=== PATIENT | female | born 1960 | race Asian ===

== ENCOUNTER 2019-04-16 18:56 | Emergency (ER) | payer OTHER ==
[2019-04-16 19:15] VITALS: BP 151/82; PULSE 58; TEMP 97.8; BMI 21.7
[2019-04-16 20:02] LABS: BASO % 0.3 % (0-2.0); EOS % 1.9 % (0-4.5); HEMATOCRIT 36.8 % (32.4-45.2); LYMPH % 34.8 % (8-40); MCH 28.4 pg (25.7-33.7); MCHC 32.7 g/dl (32.0-36.0); MEAN CELL VOLUME 86.9 fl (80-96); MEAN PLT VOLUME 8.5 fl (7.5-11.1); MONO % 5.9 % (3.8-10.2); NEUT % 57.1 % (42.8-82.8); PLATELET COUNT 290 K/MM3 (134-434); RBC 4.23 M/mm3 (3.60-5.2); RDW 15.3 % (11.6-15.6)
[2019-04-16 20:20] LABS: ALBUMIN 4.1 g/dl (3.4-5.0); BILIRUBIN,TOTAL 0.5 mg/dl (0.2-1); CALCIUM 9.3 mg/dl (8.5-10); CREATININE 0.8 mg/dl (0.55-1.3); POTASSIUM 3.8 mmol/L (3.5-5.1); TOT PROT 8.3 g/dl (6.4-8.2)
--- NOTE | 2019-04-16 20:26 | PDOC ---
Documentation entered by Jenise Lucio SCRIBE, acting as scribe for Anastasiia Stout MD. Anastasiia Stout MD: This documentation has been prepared by the [email or web address], Jenise Lucio SCRIBE, under my direction and personally reviewed by me in its entirety. I confirm that the documentation accurately reflects all work , treatment, procedures, and medical decision making performed by me. History of Present Illness - General Chief Complaint: Back Pain Stated Complaint: BACK PAIN History Source: Patient Exam Limitations: No Limitations - History of Present Illness Initial Comments: 04/16/19 20:03 The patient is a 58-year-old female who presents to the emergency department with a sudden onset of lower back pain 3 days ago. The family at bedside reports the pain worsened last night and indicates the pain is aggravated with movement. The patient was seen at urgent care, where she was given naproxen for the pain. Denies fall or injury. Denies hx of back pain. PAST MEDICAL HISTORY: HTN PAST SURGICAL HISTORY: no significant history FAMILY HISTORY: no pertinent history SOCIAL HISTORY: Pt lives with family. MEDICATIONS: reviewed ALLERGIES: As per nursing notes General: No fevers or chills, no weakness, no weight loss HEENT: No change in vision. No sore throat,. No ear pain CardioVascular: No chest pain or shortness of breath Respiratory:No cough, or wheezing. Gastrointestinal: no nausea, vomiting, diarrhea or constipation, No rectal bleeding Genitourinary: No dysuria, hematuria, or frequency Musculoskeletal: +back pain. No other joint or muscle pain or swelling Neurologic: No headache, vertigo, dizziness or loss of consciousness Psychiatric: nor depression Skin: No rashes or easy bruising Endocrine: no increased thirst or abnormal weight change Allergic: no skin or latex allergy All other systems reviewed and normal General: Well-nourished well-developed individual, no acute distress HEENT: Throat: Normal, tonsils normal, no erythema or exudate Neck: Supple, no meningeal signs, no lymphadenopathy Eyes::Pupils equal reactive and round, extraocular motion intact Chest: Nontender to palpation Cardiac: S1-S2 normal, regular rate and rhythm, no murmurs rubs or gallops Respiratory: Lungs clear to auscultation bilateral Abdomen: soft, nontender, no pulsatile mass palpated. Extremities: Warm, dry, no cyanosis, clubbing, or edema Back: +tenderness on palpation of the bilateral paraspinal area of lower lumbar spine and upper sacral spine, no tenderness of the spine lumbar and sacral spine. Skin: No rashes Neuro: Alert and oriented x3, nonfocal exam, grossly intact. Psych: Normal mood and affect 04/16/19 20:24 Assessment and plan: This is a 58-year-old female who comes in with her family for evaluation of low back pain. Patient said it began acutely when she went to get up from a couch. Patient denies history of any similar pain in the past. Patient does have history of risk factors for aortic dissection including hypertension. CBC, comp, CTA scan of abdomen and pelvis to rule out aortic dissection. 04/16/19 22:56 CAT scan was negative for any aortic pathology specifically no evidence of dissection. Patient's pain is most likely a radiculopathy Patient given Flexeril and Toradol for the pain/ Prescription for Flexeril sent to the pharmacy and patient was told to take naproxen 2 tablets twice a day and follow-up with her primary care doctor Past History - Past Medical History Allergies/Adverse Reactions: Allergies Allergy/AdvReac Type Severity Reaction Status Date / Time No Known Allergies Allergy Unverified 04/16/19 18:57 Home Medications: Ambulatory Orders Atenolol 04/16/19 Cyclobenzaprine HCl [Flexeril 10 mg] 10 mg PO BID #14 tablet 04/16/19 Naproxen 250 mg PO PRN PRN 04/16/19 - Suicide/Smoking/Psychosocial Hx Smoking History: Never smoked *Physical Exam - Vital Signs Last Vital Signs Temp Pulse Resp BP Pulse Ox 97.8 F 58 L 16 151/82 100 04/16/19 18:58 04/16/19 18:58 04/16/19 18:58 04/16/19 18:58 04/16/19 18:58 ED Treatment Course - LABORATORY CBC & Chemistry Diagram: 04/16/19 19:40 04/16/19 19:40 - ADDITIONAL ORDERS Additional order review: Laboratory Results 04/16/19 19:40 Sodium 139 Potassium 3.8 Chloride 105 Carbon Dioxide 26 Anion Gap 8 BUN 19.0 H Creatinine 0.8 Est GFR (CKD-EPI)AfAm 92.87 Est GFR (CKD-EPI)NonAf 80.13 Random Glucose 130 H Calcium 9.3 Total Bilirubin 0.5 AST 25 ALT 18 Alkaline Phosphatase 96 Total Protein 8.3 H Albumin 4.1 04/16/19 19:40 RBC 4.23 MCV 86.9 MCHC 32.7 RDW 15.3 MPV 8.5 Neutrophils % 57.1 Lymphocytes % 34.8 Monocytes % 5.9 Eosinophils % 1.9 Basophils % 0.3 - RADIOLOGY Radiology Studies Ordered: Category Date Time Status ABDOMEN CTA AOR & BLE RUNOFF [CT] Stat CT Scan 04/16/19 19:34 Ordered *DC/Admit/Observation/Transfer Diagnosis at time of Disposition: Low back pain Qualifiers: Chronicity: acute Back pain laterality: bilateral Sciatica presence: without sciatica Qualified Code(s): M54.5 - Low back pain - Discharge Dispostion Disposition: HOME Condition at time of disposition: Stable Decision to Admit order: No - Prescriptions Prescriptions: Cyclobenzaprine HCl [Flexeril 10 mg] 10 mg PO BID #14 tablet - Referrals Referrals: Bianca Bradley MD [Primary Care Provider] - - Patient Instructions Additional Instructions: For the pain continue to take the naproxen instead of 1 tablet twice a day take 2 tablets twice a day with food don't take on an empty stomach. In addition to the naproxen take Flexeril which is a muscle relaxant one tablet twice a day it will make you drowsy so do not try to work or drive or do anything that requires her concentration. Return to the emergency department immediately with ANY new, persistent or worsening symptoms. Continue any medications as previously prescribed by your physician. You should follow up with your primary doctor as soon as possible regarding today's emergency department visit. . Please make sure your doctor reviews the results of your emergency evaluation. Thank you for coming to the Emergency Department today for your care. It was a pleasure to see you today. Please note that your evaluation is INCOMPLETE until you follow-up with your doctor. - Post Discharge Activity
[2019-04-16] MEDS ORDERED: SODIUM CHLORIDE 1,000 ML IV ONE (20:34)
[2019-04-16] MEDS ORDERED: CYCLOBENZAPRINE HCL 10 MG TABLET (FP) PO ONE (22:53)
[2019-04-16] MEDS ORDERED: KETOROLAC TROMETHAMINE 60 MG/2 ML VIAL IM ONE (22:53)
[2019-04-16] MEDS ORDERED: KETOROLAC TROMETHAMINE 30 MG/1 ML VIAL ONE (23:01)
[2019-04-16] MEDS ORDERED: CYCLOBENZAPRINE HCL 10 MG TABLET (FP) ONE (23:01)
== END 2019-04-16 23:06 | disposition home or self-care (01) ==
LOC: FER 18:56
PROC: 3E0233Z Introduction of Anti-inflammatory into Muscle, Percutaneous Approach (ICD-10-PCS; principal; 2019-04-16)
PROC: 3E0337Z Introduction of Electrolytic and Water Balance Substance into Peripheral Vein, Percutaneous Approach (ICD-10-PCS; 2019-04-16)
DX: M54.5 Low back pain (principal)
CPT/HCPCS: 36415; 74175-TC; 75635-TC; 80053; 85025; 99283-25; J7030